=== PATIENT | male | born 1970 | race Caucasian/White ===

== ENCOUNTER 2021-06-01 07:05 | Day surgery (SDC) | payer BC ==
[~2021-06-01] VITALS: Ht 172.7 cm; Wt 106.6 kg
[~2021-06-01 07:05] MED LIST: OMEPRAZOLE20 MG PO
[2021-06-01 10:34] VITALS: BP 117/57
== END 2021-06-01 10:24 | disposition home or self-care (01) | DRG 730 ==
LOC: ORM 07:05
PROVIDERS: ATTEND Urology
PROC: 0VBQ3ZZ Excision of Bilateral Vas Deferens, Percutaneous Approach (ICD-10-PCS; principal; 2021-06-01)
DX: Z30.2 Encounter for sterilization (principal); K21.9 Gastro-esophageal reflux disease without esophagitis; F17.210 Nicotine dependence, cigarettes, uncomplicated
CPT/HCPCS: J1956